=== PATIENT | male | born 1950 | race Caucasian/White ===

== ENCOUNTER 2018-08-02 07:50 | Day surgery (SDC) | payer MEDICARE ==
[2018-08-02] MEDS ORDERED: Midazolam 1 MG/ML 2 ML SDV ONE (07:56)
[2018-08-02] MEDS ORDERED: fentaNYL 100 MCG/2 ML SDV ONE (07:56)
[2018-08-02] MEDS ORDERED: Propofol 200 MG/20 ML SDV ONE ×2 (07:57→08:42)
[2018-08-02] MEDS ORDERED: Lidocaine 0.5% 50 ML SDV ONE (07:57)
[2018-08-02] MEDS ORDERED: Bupivacaine 0.5% 30 ML SDV ONE (07:59)
[2018-08-02] MEDS ORDERED: Sodium Chloride 0.9% 10 ML Syringe FLUSH PRN (08:00)
[2018-08-02] MEDS ORDERED: Lactated Ringers 1,000 ML IV SCH (08:00)
[2018-08-02] MEDS ORDERED: Bacitracin/Neomycin/Polymyxin B Oint 0.9 GM U/D Packet ONE (08:00)
[2018-08-02] MEDS ORDERED: Lactated Ringers 1,000 ML ONE (08:53)
[2018-08-02] MEDS ORDERED: Midazolam 1 MG/ML 2 ML SDV IV ONE (09:18)
[2018-08-02] MEDS ORDERED: Lidocaine 0.5% 50 ML SDV INJECT ONE (09:18)
[2018-08-02] MEDS ORDERED: Propofol 200 MG/20 ML SDV IV ONE (09:18)
[2018-08-02] MEDS ORDERED: fentaNYL 100 MCG/2 ML SDV IV ONE (09:18)
--- NOTE | 2018-08-02 09:28 | PCM.PN ---
- General Info Date of Service: 08/02/18 - Review of Systems Systems Review Comment:: 67-year-old male with symptomatic and documented right carpal tunnel syndrome here for right carpal tunnel release. Symptoms are severe and have not responded to attempts at conservative management. He is medically stable to proceed today. His recent history and physical is reviewed and no significant changes are noted. I have discussed the proposed right carpal tunnel release with the patient.. Postoperative expectations and instructions reviewed. Risks and possible complications discussed. He agrees to proceed. The site is confirmed with the patient and marked. - Patient Data Vitals - Most Recent: Last Vital Signs Temp 98.4 F 08/02/18 08:00 Pulse 66 08/02/18 08:00 Resp 20 08/02/18 08:00 BP 179/98 H 08/02/18 08:00 Pulse Ox 97 08/02/18 08:00 Med Orders - Current: Current Medications Lactated Ringer's (Ringers, Lactated) 1,000 mls @ 30 mls/hr IV ASDIRECTED LUCILLE Sodium Chloride (Saline Flush) 10 ml FLUSH Q8HR PRN PRN Reason: keep vein open Discontinued Medications Bupivacaine HCl (Marcaine 0.5%) Confirm Administered Dose 30 ml .ROUTE .STK-MED ONE Stop: 08/02/18 08:00 Fentanyl (Sublimaze) Confirm Administered Dose 100 mcg .ROUTE .STK-MED ONE Stop: 08/02/18 07:57 Lidocaine HCl (Xylocaine-Mpf 0.5%) Confirm Administered Dose 50 ml .ROUTE .STK- MED ONE Stop: 08/02/18 07:58 Midazolam HCl (Versed 1 Mg/Ml) Confirm Administered Dose 2 mg .ROUTE .STK-MED ONE Stop: 08/02/18 07:57 Neomycin/Polymyxin/Bacitracin (Triple Antibiotic Oint) Confirm Administered Dose 1 each .ROUTE .STK-MED ONE Stop: 08/02/18 08:01 Propofol (Diprivan 20 Ml) Confirm Administered Dose 400 mg .ROUTE .STK-MED ONE Stop: 08/02/18 07:58 - Problem List Review Problem List Initiated/Reviewed/Updated: Yes - My Orders Last 24 Hours: My Active Orders 08/01/18 13:19 Resuscitation Status Routine 08/02/18 08:00 Patient to Empty Bladder [RC] ASDIRECTED Peripheral IV Care [RC] . DIRECTED Verify Patient Consent Obtain [RC] ASDIRECTED Vital Signs [RC] PER UNIT ROUTINE Lactated Ringers [Ringers, Lactated] 1,000 ml IV ASDIRECTED Sodium Chloride 0.9% [Saline Flush] 10 ml FLUSH Q8HR PRN Peripheral IV Insertion Adult [OM.PC] Routine 08/02/18 Breakfast Nothing Per Oral Diet [DIET] - Assessment Assessment:: Right carpal tunnel syndrome - Plan Plan:: Right carpal tunnel release
[2018-08-02] MEDS ORDERED: Bacitracin/Neomycin/Polymyxin B Oint 0.9 GM U/D Packet TOP ONE (09:42)
[2018-08-02] MEDS ORDERED: Bupivacaine 0.5% 10 ML SDV INFILT ONE (09:42)
--- NOTE | 2018-08-02 10:19 | PCM.OPNOTE ---
- General Post-Op/Procedure Note Date of Surgery/Procedure: 08/02/18 Operative Procedure(s): Right Carpal Tunnel Release Findings: Thickened Right Transverse Carpal Ligament Pre Op Diagnosis: Right Carpal Tunnel Syndrome Post-Op Diagnosis: Same Anesthesia Technique: Regional Block Primary Surgeon: Leonel Valladares Pathology: none Output, Urine Amount: 0 EBL in mLs: 10 Complications: None Condition: Good
--- NOTE | 2018-08-02 16:23 | OR ---
DATE OF SURGERY: 08/02/2018 SURGEON: Leonel Valladares MD PREOPERATIVE DIAGNOSIS: Right carpal tunnel syndrome. POSTOPERATIVE DIAGNOSIS: Right carpal tunnel syndrome. OPERATION PERFORMED: Right carpal tunnel release. INDICATIONS FOR SURGERY: This 67-year-old male has developed symptoms of numbness and tingling in the distribution of the median nerve in his right hand. This has not improved with conservative care. Nerve conduction study has documented carpal tunnel syndrome and he comes for carpal tunnel release. FINDINGS: The patient's right transverse carpal ligament is thickened, causing pressure on the underlying median nerve. The structures otherwise appear satisfactory. DESCRIPTION OF PROCEDURE: The patient was taken to the operating room. He was given IV regional anesthesia via the right hand which was sterilely prepped with Betadine and draped. A longitudinally oriented curvilinear incision was made along the palmar surface of the right wrist. Dissection proceeded down onto the right transverse carpal ligament, which was incised over and parallel to the course of the underlying nerve. The ligament was completely divided at this level as are any potentially constricting fibrous bands proximally and distally. Great care was used to avoid any injury to the nerve or its branches. Once the nerve had been completely released and with no sign of any complication, the wound was irrigated and then closed approximating the skin edges with interrupted 4-0 Prolene in a mattress technique. The wound was infiltrated with Marcaine to assist in postoperative analgesia. Antibiotic ointment and a sterile dressing were placed. This was held in position with an [place] bandage. The tourniquet was released, and the patient was taken from the operating room in satisfactory condition. ESTIMATED BLOOD LOSS: 10 mL. COMPLICATIONS: None. PROGNOSIS: Good. /[id number]/MODL
== END 2018-08-02 11:35 | disposition home or self-care (01) ==
LOC: KA.SDS 07:50
PROVIDERS: ATTEND Surgery
DX: G56.01 Carpal tunnel syndrome, right upper limb (principal); I10 Essential (primary) hypertension; E78.5 Hyperlipidemia, unspecified; J44.9 Chronic obstructive pulmonary disease, unspecified; F17.210 Nicotine dependence, cigarettes, uncomplicated; Z79.899 Other long term (current) drug therapy
CPT/HCPCS: 01810; J2001; J2250; J2704; J3010; J3490